=== PATIENT | male | born 1955 | race Caucasian/White ===

== ENCOUNTER 2016-03-18 06:15 | Inpatient (IN) | payer OTHER ==
[~2016-03-18] VITALS: Ht 177.8 cm; Wt 265.0 kg
[~2016-03-18 06:15] MED LIST: ADULT FOLDING1 EACH MC; ADULT LOW DOSE81 M1 PO; ADVAIR HFA120 INHALA IH; AEROECLIPSE1 EACH MC; ASPIR-LOW81 MG PO; AZELASTINE137 MCG/0. BOTH NARES; BUTRANS1 EAC2; CENTRUM SILVER1 EAC3 PO; CLONAZEPAM1 MG PO; CRESTOR5 MG PO; DELTASONE20 M1 PO; DEPAKOTE125 MG PO; DEPAKOTE250 MG PO; DILAUDID2 MG PO; DILAUDID4 MG PO; DIVALPROEX SOD125 M1 PO; DUONEB 2.5-0.5 M3 ML IH; Dulcolax PO; ESCITALOPRAM OX20 MG PO; FLONASE16 G1 BOTH NARES; GABAPENTIN100 MG PO; HYDROCHLOROTH12.5 M3 PO; HYDROMORPHONE HC2 MG PO; INDERAL LA80 MG PO; IPRATR-ALBUTEROL3 ML IH; LEXAPRO10 MG PO; LEXAPRO20 MG PO; LORTAB 5-500 T1 EACH PO; Lopressor PO; MICROZIDE12.5 M1 PO; MONTELUKAST SOD10 MG PO; NEURONTIN300 MG PO; OXYCODONE HCL15 MG PO; PANTOPRAZOLE SO40 MG PO; PERCOCET 10/1 TABLET PO; PERCOCET 5/31 TABLET PO; PREDNISONE10 MG PO; PREDNISONE20 MG PO; PROTONIX40 MG PO; Proventil,Ventolin H IH; REMERON45 MG PO; SIMVASTATIN80 M1 PO; SINGULAIR10 MG PO; SPIRIVA1 INHALATI IH; TIZANIDINE HCL4 M1 PO; TOPIRAMATE25 MG PO; TYLENOL REGULA325 MG PO; Theragran PO; VENTOLIN HFA18 GM IH; XANAX0.5 MG PO; XARELTO15 MG PO; Xanax PO; ZANAFLEX4 M1 PO; ZANAFLEX4 MG PO; ZITHROMAX Z-PA250 MG PO; ZOFRAN ODT4 MG PO
[2016-03-18 09:10] LABS: HEMATOCRIT 39.5 % (38.0-50.0); MCH 28.7 PG (29.0-34.0); MCHC 32.9 G/DL (30.0-36.0); MCV 87.2 FL (86-99); MEAN PLAT.VOLUME 9.9 uM^3 (9.0-12.4); PLATELET COUNT 232 K/uL (156-360); RBC DIS.WIDTH-CV 15.2 % (11.8-14.6); RBC DIS.WIDTH-SD 47.8 % (39-53); RED BLOOD COUNT 4.53 M/uL (4.00-5.50); WHITE BLOOD COUNT 12.4 K/uL (4.1-10.2)
[2016-03-18 09:21] LABS: CHLORIDE 106 mEq/L (99-109); POTASSIUM 3.2 mEq/L (3.7-5.4); SODIUM 139 mEq/L (136-147)
[2016-03-18 09:23] LABS: GLUCOSE 150 mg/dL (70-99)
[2016-03-18 09:24] LABS: ANION GAP 13 MEQ/L (2-14)
[2016-03-18 09:27] LABS: GFR ESTIMATE (CALCULATED) > 59 mL/min/; UREA NITROGEN (BUN) 18 mg/dL (9-23)
[2016-03-18 09:33] LABS: TROP-I INTERPRETATION NEGATIVE; TROPONIN-I < 0.01 ng/mL (0.0-0.30)
[2016-03-18 11:04] LABS: INFLUENZA A VIRAL ANTIGEN NEGATIVE; INFLUENZA B VIRAL ANTIGEN NEGATIVE
[2016-03-18] MEDS ORDERED: LO-DOSE ASPIRIN81 M2 PO (12:43)
[2016-03-18] MEDS ORDERED: NEURONTIN400 MG PO (12:44)
[2016-03-18] MEDS ORDERED: NUCYNTA ER100 MG PO (12:46)
[2016-03-18] MEDS ORDERED: NUCYNTA50 MG PO (12:46)
[2016-03-18] MEDS ORDERED: BRINTELLIX10 MG PO (12:47)
[2016-03-18] MEDS ORDERED: VENTOLIN HFA18 GM IH (12:48)
[2016-03-18] MEDS ORDERED: FOLIC ACID1 MG PO (12:49)
[2016-03-18] MEDS ORDERED: ADVAIR HFA120 INHALA IH (12:49)
[2016-03-18] MEDS ORDERED: DUONEB 2.5-0.5 M3 ML AEROSOL (12:50)
[2016-03-18 17:52] LABS: EOSINOPHIL (%) 0 % (0-5); IMMATURE GRANULOCYTE (%) 0.3 % (0.0-0.7); LYMPHOCYTE COUNT 0.6 K/uL (1.0-2.8); MCH 29.1 PG (29.0-34.0); MCHC 32.9 G/DL (30.0-36.0); MCV 88.4 FL (86-99); MEAN PLAT.VOLUME 10.4 uM^3 (9.0-12.4); MONOCYTE (%) 1.3 % (3-12); MONOCYTE COUNT 0.2 K/uL (0-0.8); NEUTROPHIL (%) 93.6 % (45-76); NEUTROPHIL COUNT 11.9 K/uL (1.8-6.4); PLATELET COUNT 247 K/uL (156-360); RBC DIS.WIDTH-CV 15.6 % (11.8-14.6); RBC DIS.WIDTH-SD 50.3 % (39-53); WHITE BLOOD COUNT 12.7 K/uL (4.1-10.2)
[2016-03-18 18:16] LABS: ALKALINE PHOSPHATASE 76 IU/L (3-129); ANION GAP 11 MEQ/L (2-14); CHLORIDE 104 MEQ/L (99-109); GFR ESTIMATE (CALCULATED) > 59 mL/min/; GLUCOSE 202 mg/dL (70-99); SAMPLE HEMOLYSIS CHECK 0; SAMPLE ICTERIC CHECK 0; SAMPLE LIPEMIA CHECK 0; SODIUM 136 MEQ/L (136-147); TOTAL BILIRUBIN 0.4 MG/DL (0.0-1.0); UREA NITROGEN (BUN) 20 mg/dL (9-23)
[2016-03-18 18:42] LABS: POTASSIUM 4.1 MEQ/L (3.7-5.4)
[2016-03-18 20:00] VITALS: BP 141/72
[2016-03-18 23:34] VITALS: BP 121/66
[2016-03-19 04:00] VITALS: BP 117/65
[2016-03-19 08:16] VITALS: BP 126/67
[2016-03-19 08:44] LABS: MCH 28.8 PG (29.0-34.0); MCHC 32.3 G/DL (30.0-36.0); MEAN PLAT.VOLUME 10.6 uM^3 (9.0-12.4); PLATELET COUNT 261 K/uL (156-360); RBC DIS.WIDTH-CV 15.9 % (11.8-14.6); RBC DIS.WIDTH-SD 51.5 % (39-53); RED BLOOD COUNT 4.38 M/uL (4.00-5.50); WHITE BLOOD COUNT 15.5 K/uL (4.1-10.2)
[2016-03-19 09:05] LABS: ANION GAP 9 MEQ/L (2-14); CHLORIDE 105 MEQ/L (99-109); POTASSIUM 4.1 MEQ/L (3.7-5.4); SAMPLE HEMOLYSIS CHECK 0; SAMPLE ICTERIC CHECK 0; SAMPLE LIPEMIA CHECK 0; SODIUM 138 MEQ/L (136-147)
[2016-03-19 09:10] LABS: GFR ESTIMATE (CALCULATED) > 59 mL/min/; GLUCOSE 123 mg/dL (70-99); UREA NITROGEN (BUN) 16 mg/dL (9-23)
[2016-03-19 12:00] VITALS: BP 130/78
[2016-03-19] MEDS ORDERED: FEXOFENADINE H180 MG PO (15:04)
[2016-03-19] MEDS ORDERED: POTASSIUM CHLO10 ME3 PO (15:05)
[2016-03-19] MEDS ORDERED: VITAMIN D32000 UNI1 PO (15:05)
[2016-03-19] MEDS ORDERED: XIIDRA1 EACH BOTH EYES (15:05)
[2016-03-19] MEDS ORDERED: TOPAMAX50 MG PO (15:06)
[2016-03-19] MEDS ORDERED: CRESTOR10 MG PO (15:06)
[2016-03-19 16:00] VITALS: BP 136/82
[2016-03-19 20:25] VITALS: BP 144/71
[2016-03-20] VITALS (7 sets, daily range): BP systolic 107–151; BP diastolic 65–772
[2016-03-20 05:44] LABS: HEMATOCRIT 36.4 % (38.0-50.0); MCH 28.4 PG (29.0-34.0); MCHC 31.9 G/DL (30.0-36.0); MCV 89.2 FL (86-99); MEAN PLAT.VOLUME 10.4 uM^3 (9.0-12.4); PLATELET COUNT 242 K/uL (156-360); RBC DIS.WIDTH-CV 15.9 % (11.8-14.6); RED BLOOD COUNT 4.08 M/uL (4.00-5.50); WHITE BLOOD COUNT 9.6 K/uL (4.1-10.2)
[2016-03-20 05:54] LABS: ANION GAP 9 MEQ/L (2-14); CHLORIDE 105 MEQ/L (99-109); GFR ESTIMATE (CALCULATED) > 59 mL/min/; GLUCOSE 101 mg/dL (70-99); SAMPLE HEMOLYSIS CHECK 0; SAMPLE ICTERIC CHECK 0; SAMPLE LIPEMIA CHECK 0; SODIUM 138 MEQ/L (136-147); UREA NITROGEN (BUN) 17 mg/dL (9-23)
[2016-03-21 04:10] VITALS: BP 118/69
[2016-03-21 06:30] LABS: HEMATOCRIT 37.1 % (38.0-50.0); MCH 28.8 PG (29.0-34.0); MCHC 32.1 G/DL (30.0-36.0); MCV 89.8 FL (86-99); MEAN PLAT.VOLUME 10.5 uM^3 (9.0-12.4); PLATELET COUNT 246 K/uL (156-360); RBC DIS.WIDTH-CV 15.9 % (11.8-14.6); RBC DIS.WIDTH-SD 52.5 % (39-53); RED BLOOD COUNT 4.13 M/uL (4.00-5.50); WHITE BLOOD COUNT 8.8 K/uL (4.1-10.2)
[2016-03-21 06:56] LABS: ANION GAP 6 MEQ/L (2-14); CHLORIDE 105 MEQ/L (99-109); GFR ESTIMATE (CALCULATED) > 59 mL/min/; GLUCOSE 107 mg/dL (70-99); SAMPLE HEMOLYSIS CHECK 0; SAMPLE ICTERIC CHECK 0; SAMPLE LIPEMIA CHECK 0; SODIUM 137 MEQ/L (136-147); UREA NITROGEN (BUN) 20 mg/dL (9-23)
[2016-03-21 08:11] VITALS: BP 111/59
[2016-03-21 12:00] VITALS: BP 134/74
[2016-03-21 16:55] VITALS: BP 124/68
[2016-03-21 21:23] VITALS: BP 130/75
[2016-03-22] VITALS: BP 130/85
[2016-03-22 04:00] VITALS: BP 111/57
[2016-03-22 08:07] VITALS: BP 112/67
[2016-03-22 11:34] VITALS: BP 122/66
[2016-03-22 16:00] VITALS: BP 142/74
[2016-03-22 21:04] VITALS: BP 132/96
[2016-03-22 21:19] LABS: TROP-I INTERPRETATION NEGATIVE; TROPONIN-I < 0.01 ng/mL (0.0-0.30)
[2016-03-23] VITALS: BP 138/74
[2016-03-23 05:04] VITALS: BP 136/66
[2016-03-23 07:32] VITALS: BP 155/80
[2016-03-23 08:53] LABS: POINT-OF-CARE METER ID UU14174225
[2016-03-23 09:14] LABS: HEMATOCRIT 38.4 % (38.0-50.0); MCH 28.8 PG (29.0-34.0); MCHC 33.1 G/DL (30.0-36.0); MCV 87.1 FL (86-99); MEAN PLAT.VOLUME 10.1 uM^3 (9.0-12.4); PLATELET COUNT 288 K/uL (156-360); RBC DIS.WIDTH-CV 15.1 % (11.8-14.6); RBC DIS.WIDTH-SD 47.9 % (39-53); RED BLOOD COUNT 4.41 M/uL (4.00-5.50)
[2016-03-23 09:15] LABS: WHITE BLOOD COUNT 14.1 K/uL (4.1-10.2)
[2016-03-23 09:24] LABS: CHLORIDE 105 mEq/L (99-109); POTASSIUM 4.4 mEq/L (3.7-5.4); SODIUM 138 mEq/L (136-147)
[2016-03-23 09:26] LABS: GLUCOSE 138 mg/dL (70-99)
[2016-03-23 09:27] LABS: ANION GAP 10 MEQ/L (2-14)
[2016-03-23 09:30] LABS: GFR ESTIMATE (CALCULATED) > 59 mL/min/
[2016-03-23 09:31] LABS: UREA NITROGEN (BUN) 16 mg/dL (9-23)
[2016-03-23 09:34] LABS: TROP-I INTERPRETATION NEGATIVE; TROPONIN-I < 0.01 ng/mL (0.0-0.30)
[2016-03-23 11:38] VITALS: BP 124/62
[2016-03-23 15:56] VITALS: BP 116/70
[2016-03-23 20:00] VITALS: BP 133/67
[2016-03-24] VITALS: BP 138/74
[2016-03-24 03:46] VITALS: BP 103/56
[2016-03-24 06:04] LABS: HEMATOCRIT 36.9 % (38.0-50.0); MCH 27.6 PG (29.0-34.0); MCHC 31.2 G/DL (30.0-36.0); MCV 88.7 FL (86-99); MEAN PLAT.VOLUME 10.4 uM^3 (9.0-12.4); PLATELET COUNT 266 K/uL (156-360); RBC DIS.WIDTH-CV 15.8 % (11.8-14.6); RBC DIS.WIDTH-SD 51.1 % (39-53); RED BLOOD COUNT 4.16 M/uL (4.00-5.50); WHITE BLOOD COUNT 14.1 K/uL (4.1-10.2)
[2016-03-24 06:41] LABS: ANION GAP 12 MEQ/L (2-14); CHLORIDE 103 MEQ/L (99-109); GFR ESTIMATE (CALCULATED) > 59 mL/min/; GLUCOSE 167 mg/dL (70-99); POTASSIUM 4.3 MEQ/L (3.7-5.4); SAMPLE HEMOLYSIS CHECK 0; SAMPLE ICTERIC CHECK 0; SAMPLE LIPEMIA CHECK 0; SODIUM 139 MEQ/L (136-147); UREA NITROGEN (BUN) 15 mg/dL (9-23)
[2016-03-24 08:10] VITALS: BP 117/67
[2016-03-24 11:50] VITALS: BP 140/76
[2016-03-24 17:20] VITALS: BP 154/82
[2016-03-24 20:00] VITALS: BP 131/81
[2016-03-25] VITALS: BP 130/65
[2016-03-25 04:41] VITALS: BP 135/73
[2016-03-25 09:02] LABS: HEMATOCRIT 39.2 % (38.0-50.0); MCH 28.1 PG (29.0-34.0); MCHC 31.9 G/DL (30.0-36.0); MCV 88.1 FL (86-99); PLATELET COUNT 282 K/uL (156-360); RBC DIS.WIDTH-CV 15.9 % (11.8-14.6); RBC DIS.WIDTH-SD 51.2 % (39-53); RED BLOOD COUNT 4.45 M/uL (4.00-5.50)
[2016-03-25 09:40] LABS: ANION GAP 8 MEQ/L (2-14); CHLORIDE 105 MEQ/L (99-109); GFR ESTIMATE (CALCULATED) > 59 mL/min/; GLUCOSE 173 mg/dL (70-99); SAMPLE HEMOLYSIS CHECK 0; SAMPLE ICTERIC CHECK 0; SAMPLE LIPEMIA CHECK 0; SODIUM 137 MEQ/L (136-147); UREA NITROGEN (BUN) 15 mg/dL (9-23)
[2016-03-25 15:30] VITALS: BP 140/78
[2016-03-25 20:00] VITALS: BP 141/81
[2016-03-26] VITALS: BP 140/70
[2016-03-26 04:00] VITALS: BP 118/65
[2016-03-26 06:29] LABS: HEMATOCRIT 39.2 % (38.0-50.0); MCH 27.8 PG (29.0-34.0); MCHC 31.6 G/DL (30.0-36.0); MCV 87.9 FL (86-99); MEAN PLAT.VOLUME 10.5 uM^3 (9.0-12.4); PLATELET COUNT 302 K/uL (156-360); RBC DIS.WIDTH-CV 15.7 % (11.8-14.6); RBC DIS.WIDTH-SD 50.4 % (39-53); RED BLOOD COUNT 4.46 M/uL (4.00-5.50); WHITE BLOOD COUNT 13.3 K/uL (4.1-10.2)
[2016-03-26 06:37] LABS: ANION GAP 10 MEQ/L (2-14); CHLORIDE 104 MEQ/L (99-109); GFR ESTIMATE (CALCULATED) > 59 mL/min/; GLUCOSE 129 mg/dL (70-99); POTASSIUM 4.1 MEQ/L (3.7-5.4); SAMPLE HEMOLYSIS CHECK 0; SAMPLE ICTERIC CHECK 0; SAMPLE LIPEMIA CHECK 0; SODIUM 139 MEQ/L (136-147); UREA NITROGEN (BUN) 17 mg/dL (9-23)
[2016-03-26 07:47] VITALS: BP 109/65
[2016-03-26 10:56] VITALS: BP 134/63
[2016-03-26] MEDS ORDERED: AMOX TR-K CLV1 EAC4 PO (13:05)
[2016-03-26 14:55] VITALS: BP 132/69
[2016-03-26 20:00] VITALS: BP 134/71
[2016-03-27] VITALS: BP 126/69
[2016-03-27 04:00] VITALS: BP 131/75
[2016-03-27 07:40] VITALS: BP 128/75
[2016-03-27 11:35] VITALS: BP 126/66
[2016-03-27 15:24] VITALS: BP 134/78
[2016-03-28] VITALS: BP 148/86
[2016-03-28 08:00] VITALS: BP 135/74
[2016-03-28 16:11] VITALS: BP 133/69
[2016-03-29] VITALS: BP 129/71
[2016-03-29 08:15] VITALS: BP 115/59
[2016-03-29 16:00] VITALS: BP 117/57
[2016-03-30 00:04] VITALS: BP 133/70
[2016-03-30 08:03] VITALS: BP 102/64
[2016-03-30 15:38] VITALS: BP 127/77
[2016-03-30 23:52] VITALS: BP 115/65
[2016-03-31 07:54] VITALS: BP 122/74
[2016-03-31 15:18] VITALS: BP 110/61
[2016-03-31] MEDS ORDERED: PREDNISONE20 MG PO (16:35)
[2016-04-01 00:36] VITALS: BP 118/61
[2016-04-01 07:50] VITALS: BP 124/68
== END 2016-04-01 13:51 | disposition home or self-care (01) | DRG 872 ==
LOC: EME 06:15 → 5SOUTH 13:06 → EDOF 13:06 → 5SOUTH 13:06
PROVIDERS: Emergency Medicine; Hospitalist; Nurse Practitioner Family; Physician Assistant; Physician Assistant Medical
DX: A41.9 Sepsis, unspecified organism (principal); J44.0 Chronic obstructive pulmonary disease with (acute) lower respiratory infection; E87.2 Acidosis; F33.9 Major depressive disorder, recurrent, unspecified; Z68.45 Body mass index [BMI] 70 or greater, adult; E87.6 Hypokalemia; S61.452A Open bite of left hand, initial encounter; I25.10 Atherosclerotic heart disease of native coronary artery without angina pectoris; L03.114 Cellulitis of left upper limb; G47.33 Obstructive sleep apnea (adult) (pediatric); E66.01 Morbid (severe) obesity due to excess calories; E78.5 Hyperlipidemia, unspecified; E11.9 Type 2 diabetes mellitus without complications; M79.601 Pain in right arm; G89.29 Other chronic pain; G43.909 Migraine, unspecified, not intractable, without status migrainosus; I25.2 Old myocardial infarction; Z98.1 Arthrodesis status; Z86.718 Personal history of other venous thrombosis and embolism; Z86.73 Personal history of transient ischemic attack (TIA), and cerebral infarction without residual deficits; Z86.711 Personal history of pulmonary embolism; W19.XXXA Unspecified fall, initial encounter
CPT/HCPCS: 36600; 70450; 71010; 71020; 71275; 72125; 72128; 72131; 72170; 72190; 73030; 73130; 80048; 80053; 82803; 82948; 83605; 83880; 84484; 85025; 85027; 85651; 86140; 87040; 87502; 93005; 93306; 93880; 94010; 94640; 94640 76; 94644; 94760; 94799; 97530 GO; 97530 GP; 99202; 99281; 99285; J0295; J0456; J1170; J1644; J1885; J1956; J2920; J2930; J7030; J7050; J7512

== ENCOUNTER 2016-09-22 10:52 | Day surgery (SDC) | payer OTHER ==
[~2016-09-22] VITALS: Ht 180.3 cm; Wt 115.7 kg
[~2016-09-22 10:52] MED LIST changes: +AMOX TR-K CLV1 EAC4 PO; +BRINTELLIX10 MG PO; +CRESTOR10 MG PO; +DUONEB 2.5-0.5 M3 ML AEROSOL; +FEXOFENADINE H180 MG PO; +FOLIC ACID1 MG PO; +HYDROXYZINE HCL25 MG PO; +LO-DOSE ASPIRIN81 M2 PO; +NEURONTIN400 MG PO; +NUCYNTA ER100 MG PO; +NUCYNTA50 MG PO; +POTASSIUM CHLO10 ME3 PO; +PRISTIQ50 MG PO; +TOPAMAX50 MG PO; +VITAMIN D32000 UNI1 PO; +XIIDRA1 EACH BOTH EYES
[2016-09-22 11:24] VITALS: BP 142/83
[2016-09-22] MEDS ORDERED: GABAPENTIN600 MG PO (16:09)
[2016-09-22] MEDS ORDERED: PERCOCET 10/1 TABLET PO (16:09)
[2016-09-22 16:32] VITALS: BP 148/94
[2016-09-22 17:35] VITALS: BP 110/72
== END 2016-09-22 18:00 | disposition home or self-care (01) ==
LOC: SDC 10:52
DX: M19.042 Primary osteoarthritis, left hand (principal); M24.542 Contracture, left hand; G90.512 Complex regional pain syndrome I of left upper limb; I10 Essential (primary) hypertension; J44.9 Chronic obstructive pulmonary disease, unspecified; I69.354 Hemiplegia and hemiparesis following cerebral infarction affecting left non-dominant side; Z79.82 Long term (current) use of aspirin; I25.2 Old myocardial infarction
CPT/HCPCS: 73140; 76000; J0330; J0690; J1100; J1170; J2250; J2405; J2710; J3010; S0020

== ENCOUNTER 2016-09-23 07:28 | Observation (INO) | payer OTHER ==
[~2016-09-23] VITALS: Ht 180.3 cm; Wt 119.8 kg
[~2016-09-23 07:28] MED LIST changes: +GABAPENTIN600 MG PO
[2016-09-23 09:09] LABS: EOSINOPHIL (%) 0 % (0-5); HEMATOCRIT 41.3 % (38.0-50.0); IMMATURE GRANULOCYTE (%) 0.9 % (0.0-0.7); IMMATURE GRANULOCYTE COUNT 0.2 K/uL; INSTRUMENT ABS NEUTROPHIL CT 17.9 K/uL; LYMPHOCYTE COUNT 1.3 K/uL (1.0-2.8); MCH 28.2 PG (29.0-34.0); MCHC 32.7 G/DL (30.0-36.0); MCV 86.2 FL (86-99); MEAN PLAT.VOLUME 9.9 uM^3 (9.0-12.4); NEUTROPHIL (%) 87.9 % (45-76); NEUTROPHIL COUNT 17.9 K/uL (1.8-6.4); PLATELET COUNT 291 K/uL (156-360); RBC DIS.WIDTH-CV 14.2 % (11.8-14.6); RBC DIS.WIDTH-SD 44.8 % (39-53); RED BLOOD COUNT 4.79 M/uL (4.00-5.50); WHITE BLOOD COUNT 20.4 K/uL (4.1-10.2)
[2016-09-23 09:17] LABS: CHLORIDE 103 mEq/L (99-109); POTASSIUM 4.4 mEq/L (3.7-5.4); SODIUM 137 mEq/L (136-147)
[2016-09-23 09:19] LABS: GLUCOSE 138 mg/dL (70-99)
[2016-09-23 09:21] LABS: ANION GAP 9 MEQ/L (2-14)
[2016-09-23 09:23] LABS: GFR ESTIMATE (CALCULATED) > 59 mL/min/
[2016-09-23 09:24] LABS: UREA NITROGEN (BUN) 16 mg/dL (9-23)
[2016-09-23 09:29] LABS: TROP-I INTERPRETATION NEGATIVE; TROPONIN-I < 0.01 ng/mL (0.0-0.30)
[2016-09-23 13:36] VITALS: BP 112/59
[2016-09-23 16:40] VITALS: BP 114/63
[2016-09-23 17:47] LABS: TROP-I INTERPRETATION NEGATIVE; TROPONIN-I < 0.01 ng/mL (0.0-0.30)
[2016-09-23 20:15] VITALS: BP 120/60
[2016-09-23 23:47] LABS: TROP-I INTERPRETATION NEGATIVE; TROPONIN-I < 0.01 ng/mL (0.0-0.30)
[2016-09-24 03:21] VITALS: BP 143/86
[2016-09-24 05:50] LABS: HEMATOCRIT 36.6 % (38.0-50.0); MCH 28.3 PG (29.0-34.0); MCHC 32.5 G/DL (30.0-36.0); MCV 87.1 FL (86-99); MEAN PLAT.VOLUME 9.9 uM^3 (9.0-12.4); PLATELET COUNT 235 K/uL (156-360); RBC DIS.WIDTH-CV 14.6 % (11.8-14.6); WHITE BLOOD COUNT 14.3 K/uL (4.1-10.2)
[2016-09-24 06:18] LABS: ANION GAP 8 MEQ/L (2-14); CHLORIDE 106 MEQ/L (99-109); GFR ESTIMATE (CALCULATED) > 59 mL/min/; GLUCOSE 122 mg/dL (70-99); POTASSIUM 3.9 MEQ/L (3.7-5.4); SAMPLE HEMOLYSIS CHECK 0; SAMPLE ICTERIC CHECK 0; SAMPLE LIPEMIA CHECK 0; SODIUM 141 MEQ/L (136-147); UREA NITROGEN (BUN) 14 mg/dL (9-23)
[2016-09-24 12:20] VITALS: BP 121/89
[2016-09-24] MEDS ORDERED: TORADOL10 MG PO (13:39)
[2016-09-24 16:00] VITALS: BP 120/58
== END 2016-09-24 17:50 | disposition home or self-care (01) ==
LOC: EME 07:28 → EDOF 10:57 → 5WEST 10:57
PROVIDERS: Internal Medicine; Physician Assistant
DX: M62.81 Muscle weakness (generalized) (principal); R25.1 Tremor, unspecified; M79.601 Pain in right arm; M25.511 Pain in right shoulder; Z98.890 Other specified postprocedural states; G89.29 Other chronic pain; I69.398 Other sequelae of cerebral infarction; Z79.82 Long term (current) use of aspirin; Z79.891 Long term (current) use of opiate analgesic; I25.10 Atherosclerotic heart disease of native coronary artery without angina pectoris; I10 Essential (primary) hypertension; E78.5 Hyperlipidemia, unspecified; G47.33 Obstructive sleep apnea (adult) (pediatric); F32.9 Major depressive disorder, single episode, unspecified; D72.829 Elevated white blood cell count, unspecified; I25.2 Old myocardial infarction; Z88.5 Allergy status to narcotic agent; Z91.040 Latex allergy status
CPT/HCPCS: 70450; 72126; 73200; 80048; 84484; 85025; 85027; 87040; 94640; 94640 76; 94760; 99202; G0378; J1200; J1650; J1885; J7030; Q0177

== ENCOUNTER → 2017-06-09 | Outpatient (CLI) | payer OTHER, MEDICARE ==
[~2017-06-09] MED LIST changes: +TORADOL10 MG PO
== END | disposition home or self-care (01) ==
LOC: CDC 16:02
DX: Z01.810 Encounter for preprocedural cardiovascular examination (principal)
CPT/HCPCS: 93000

== ENCOUNTER 2017-11-01 14:52 | Emergency (ER) | payer OTHER, MEDICARE ==
[~2017-11-01] VITALS: Ht 177.8 cm; Wt 116.8 kg
[2017-11-01 16:41] LABS: BASOPHIL (%) 0.4 % (0-1); EOSINOPHIL (%) 2.4 % (0-5); EOSINOPHIL COUNT 0.2 K/uL (0-0.3); HEMATOCRIT 38.2 % (38.0-50.0); HEMOGLOBIN 12.6 G/DL (12.5-16.6); IMMATURE GRANULOCYTE (%) 0.4 % (0.0-0.7); LYMPHOCYTE (%) 27.7 % (15-42); LYMPHOCYTE COUNT 2.4 K/uL (1.0-2.8); MCV 87.8 FL (86-99); MONOCYTE (%) 8.1 % (3-12); MONOCYTE COUNT 0.7 K/uL (0-0.8); NEUTROPHIL COUNT 5.2 K/uL (1.8-6.4); PLATELET COUNT 237 K/uL (156-360); RBC DIS.WIDTH-CV 14.6 % (11.8-14.6); RBC DIS.WIDTH-SD 46.8 % (39-53); RED BLOOD COUNT 4.35 M/uL (4.00-5.50); WHITE BLOOD COUNT 8.5 K/uL (4.1-10.2)
[2017-11-01 16:48] LABS: INTER. NORMALIZED RATIO 1.1
[2017-11-01 16:49] LABS: ALBUMIN 3.8 g/dL (3.2-4.8); CHLORIDE 105 mEq/L (99-109); POTASSIUM 3.8 mEq/L (3.7-5.4); SODIUM 140 mEq/L (136-147)
[2017-11-01 16:51] LABS: GLUCOSE 91 mg/dL (70-99); TOTAL PROTEIN 6.7 g/dL (6.4-8.3)
[2017-11-01 16:53] LABS: TOTAL BILIRUBIN 0.4 mg/dL (0.0-1.0)
[2017-11-01 16:55] LABS: ALKALINE PHOSPHATASE 88 IU/L (3-129); CREATININE 1.1 mg/dL (0.6-1.3); GFR ESTIMATE (CALCULATED) > 59 mL/min/ (58.99-99999)
[2017-11-01 16:56] LABS: UREA NITROGEN (BUN) 15 mg/dL (9-23)
[2017-11-01 16:57] LABS: AST (GOT) 29 IU/L (2-34)
[2017-11-01 16:58] LABS: ALT (GPT) 39 IU/L (3-49); CREATINE KINASE 234 IU/L (1-294)
[2017-11-01 17:04] LABS: TROP-I INTERPRETATION NEGATIVE; TROPONIN-I < 0.01 ng/mL (0.0-0.30)
[2017-11-01 17:13] LABS: APPEARANCE CLEAR ((CLEAR)); BILIRUBIN NEGATIVE; BLOOD NEGATIVE; COLOR YELLOW ((YELLOW)); GLUCOSE (STRIP) NEGATIVE; KETONES NEGATIVE; LEUKOCYTES NEGATIVE; NITRITE NEGATIVE; PROTEIN (STRIP) 30; SPECIFIC GRAVITY 1.026 (1.000-1.030)
[2017-11-01 20:27] VITALS: BP 95/72
== END 2017-11-01 20:28 | disposition home or self-care (01) ==
LOC: EME 14:52
PROVIDERS: Emergency Medicine
DX: S06.0X0A Concussion without loss of consciousness, initial encounter (principal); M62.838 Other muscle spasm; M25.519 Pain in unspecified shoulder; R10.32 Left lower quadrant pain; W17.89XA Other fall from one level to another, initial encounter; W22.8XXA Striking against or struck by other objects, initial encounter; Y92.015 Private garage of single-family (private) house as the place of occurrence of the external cause; M47.9 Spondylosis, unspecified; M50.33 Other cervical disc degeneration, cervicothoracic region; M51.36 Other intervertebral disc degeneration, lumbar region; R06.02 Shortness of breath; R11.0 Nausea; R91.1 Solitary pulmonary nodule; J44.9 Chronic obstructive pulmonary disease, unspecified; I10 Essential (primary) hypertension; I25.2 Old myocardial infarction; Z86.73 Personal history of transient ischemic attack (TIA), and cerebral infarction without residual deficits; Z86.718 Personal history of other venous thrombosis and embolism; Z87.442 Personal history of urinary calculi; Z79.82 Long term (current) use of aspirin
CPT/HCPCS: 70450; 71260; 72125; 72129; 72132; 74177; 80053; 81003; 82550; 84484; 85025; 85610; 93005; 99281; 99285; J2405; J3010; J7030